=== PATIENT | male | born 1970 | race Two or more races ===

== ENCOUNTER 2019-11-23 12:30 | Inpatient (IN) | payer MEDICAID ==
[~2019-11-23] VITALS: Ht 167.6 cm; Wt 85.5 kg
--- NOTE | 2019-11-23 08:15 | NUR ---
MS admit from ER CHRISTOPHER REYNOLDS admitted to tele/MS after SBAR received. Patient oriented to ZOE IVEY, ROMAN primary RN, unit, room, bed, and unit policies regarding patient care and visiting hours. Patient weighed by bedscale and encouraged to call if they need something. All questions and concerns addressed, patient verbalized understanding. Note: Patient received no complaints of pain or distress. He ambulates to BR. Resp even and unlabored. Alert and oriented x 3. Will continue to monitor.
[2019-11-23 13:22] LABS: Urine Bacteria FEW /hpf (None Seen); Urine Blood 3+ /uL (Negative); Urine Mucus FEW (None Seen); Urine Specific Gravity 1.026 (1.001-1.035); Urine WBC 8 /hpf (0 - 3)
[2019-11-23 16:17] LABS: Basophils # (auto) 0 10 ^3/uL (0-0.2); Basophils % (auto) 0.2 % (0.0-2.0); Eosinophils # (auto) 0 10 ^3/uL (0-0.8); Hematocrit 48.4 % (41.0-53.0); Hemoglobin 16.3 g/dL (13.5-17.5); Lymphocytes # (auto) 0.5 10 ^3/uL (0.4-5.4); Lymphocytes % (auto) 4.9 % (10.0-50.0); Mean Corpuscular Hemoglobin 30.6 pg (28.0-32.0); Mean Corpuscular Hgb Conc. 33.6 g/dL (32.0-36.0); Mean Corpuscular Volume 91.1 fL (80.0-100.0); Monocytes # (auto) 0.4 10 ^3/uL (0-1.3); Monocytes % (auto) 4.4 % (0.0-12.0); Neutrophils % (auto) 90.5 % (37.0-80.0); Platelet Count (auto) 248 10^3/uL (140-450); Red Blood Cells 5.32 10^6/uL (4.5-5.90)
[2019-11-23 16:38] LABS: Albumin 4.4 g/dL (3.4-5.0); Anion Gap 6 (5-15); Blood Urea Nitrogen 12 mg/dL (7-18); Calcium 9.5 mg/dL (8.5-10.1); Carbon Dioxide 27 mmol/L (21-32); Chloride 103 mmol/L (98-107); Glucose 149 mg/dL (74-106); Potassium 3.9 mmol/L (3.5-5.1); Sodium 136 mmol/L (136-145)
[2019-11-23 16:38] LABS: Alcohol, Urine < 3.0 mg/dL (0-10); Amphetamine Screen, Urine NEGATIVE (NEGATIVE); Barbiturate Scree,Urine NEGATIVE (NEGATIVE); Benzodiazephine Screen, Urine NEGATIVE (NEGATIVE); Cannabinoid Screen, Urine NEGATIVE (NEGATIVE); Cocaine Screen, Urine NEGATIVE (NEGATIVE); Opiate Scree,Urine NEGATIVE (NEGATIVE); Phencyclidine Screen, Urine NEGATIVE (NEGATIVE)
[2019-11-23 16:42] LABS: Amylase 62 U/L (25-115); Lipase 72 U/L (73-393)
[2019-11-23 16:44] LABS: Alanine Aminotransferase 43 U/L (16-61); Alkaline Phosphatase 84 U/L (45-117); Aspartate Aminotransferase 19 U/L (15-37); BUN/Creatinine Ratio 11.1; Bilirubin, Total 0.5 mg/dL (0.2-1.0); GFR African American 94 mL/min; GFR Non-African American 78 mL/min; Total Protein 8.3 g/dL (6.4-8.2)
[2019-11-23] MEDS ORDERED: ONDANSETRON HCL 4 MG/2 ML VIAL IV ONE (17:00)
[2019-11-23] MEDS ORDERED: MORPHINE SULFATE 4 MG/ML SYR/VIAL IV ONE (17:00)
[2019-11-23] MEDS ORDERED: TAMSULOSIN HYDROCHLORIDE 0.4 MG CAP PO ONE (17:00)
[2019-11-23] MEDS ORDERED: ACETAMINOPHEN 500 MG TAB PO PRN (19:30)
[2019-11-23] MEDS ORDERED: MORPHINE SULF INJ 2 MG/ML SYRINGE 1ML IV PRN (19:30)
[2019-11-23] MEDS ORDERED: TEMAZEPAM 15 MG CAP PO PRN (19:30)
[2019-11-23] MEDS ORDERED: DEXTROSE (50%) 50ML SYRG IV PRN (19:30)
[2019-11-23] MEDS ORDERED: levoFLOXacin 500MG 100 ML IV ONE (19:30)
[2019-11-23] MEDS ORDERED: PROMETHAZINE HCL 25 MG/ML 1ML IV PRN (19:30)
[2019-11-23] MEDS: SODIUM CHLORIDE 0.9% 1,000 ML IV SCH (20:14)
[2019-11-23] MEDS: FAMOTIDINE (10MG/ML) 2ML VL IV SCH (20:14)
[2019-11-23 20:20] VITALS: BP 129/93
[2019-11-23 22:00] VITALS: BP 129/93
[2019-11-23] MEDS: ACCU-CHEK COMFORT CURVE STRIP VI SCH (22:00)
[2019-11-24 05:00] VITALS: BP 120/76
[2019-11-24] MEDS: SODIUM CHLORIDE 0.9% 1,000 ML IV SCH ×3 (05:24→19:34)
[2019-11-24] MEDS: ACCU-CHEK COMFORT CURVE STRIP VI SCH (06:42)
--- NOTE | 2019-11-24 06:49 | NUR ---
Patient denies pain and discomfort. No distress noted. AM accucheck 104mg/dl.
--- NOTE | 2019-11-24 08:15 | NUR ---
Opening Shift Note Assumed care of patient, awake, alert, and oriented. No S/S of distress/SOB. C/o pain 6/10 achy abdomen, will medicate per MD orders. Bed in lowest/locked position, bed rails up x2, call light within reach. Instructed on POC and to call for assist PRN. Will continue to monitor for changes Q1hr and PRN.
[2019-11-24] MEDS: FAMOTIDINE (10MG/ML) 2ML VL IV SCH ×2 (08:18→19:29)
[2019-11-24] MEDS: levoFLOXacin 500MG 100 ML IV SCH (08:19)
[2019-11-24] MEDS: traMADol HCL 50 MG TAB PO PRN ×2 (08:19→19:30)
[2019-11-24 09:00] VITALS: BP 137/78
[2019-11-24 12:50] VITALS: BP 135/90
--- NOTE | 2019-11-24 13:10 | NUR ---
MD ROUNDS DR CASTANEDA AT BEDSIDE DISCUSSING POC WITH PATIENT. NEW ORDERS RECEIVED/WILL CARRY OUT . WILL CONTINUE TO MONITOR
--- NOTE | 2019-11-24 13:59 | NUR ---
LAB UA SENT TO LAB PER MD ORDERS
[2019-11-24 17:00] VITALS: BP 149/87
[2019-11-24 22:00] VITALS: BP 128/72
[2019-11-25] MEDS: SODIUM CHLORIDE 0.9% 1,000 ML IV SCH ×3 (01:55→16:10)
[2019-11-25 05:00] VITALS: BP 110/81
[2019-11-25] MEDS: FAMOTIDINE (10MG/ML) 2ML VL IV SCH (05:47)
[2019-11-25 05:58] LABS: Basophils # (auto) 0 10 ^3/uL (0-0.2); Basophils % (auto) 0.3 % (0.0-2.0); Eosinophils # (auto) 0 10 ^3/uL (0-0.8); Eosinophils % (auto) 0.6 % (0.0-7.0); Hematocrit 43.7 % (41.0-53.0); Hemoglobin 14.6 g/dL (13.5-17.5); Lymphocytes # (auto) 1.8 10 ^3/uL (0.4-5.4); Lymphocytes % (auto) 27.7 % (10.0-50.0); Mean Corpuscular Hemoglobin 30.2 pg (28.0-32.0); Mean Corpuscular Hgb Conc. 33.3 g/dL (32.0-36.0); Mean Corpuscular Volume 90.5 fL (80.0-100.0); Monocytes # (auto) 0.8 10 ^3/uL (0-1.3); Monocytes % (auto) 12.6 % (0.0-12.0); Neutrophils # (auto) 3.9 10 ^3/uL (1.6-8.6); Neutrophils % (auto) 58.8 % (37.0-80.0); Nucleated Red Blood Cells % 0.1 %; Platelet Count (auto) 189 10^3/uL (140-450); Red Blood Cells 4.83 10^6/uL (4.5-5.90); Red Cell Distribution Width 12.7 % (11.8-14.3); White Blood Cell 6.6 10^3/uL (4.4-10.8)
[2019-11-25 06:17] LABS: INR 0.98 (0.9-1.15)
[2019-11-25 06:18] LABS: BUN/Creatinine Ratio 9.3; Calcium 8.4 mg/dL (8.5-10.1); Potassium 3.8 mmol/L (3.5-5.1)
[2019-11-25 08:37] VITALS: BP 118/64
[2019-11-25] MEDS: levoFLOXacin 500MG 100 ML IV SCH (09:44)
[2019-11-25 12:35] VITALS: BP 127/86
[2019-11-25 14:42] VITALS: BP 127/86
[2019-11-25 14:52] VITALS: BP 127/86
--- NOTE | 2019-11-25 16:38 | NUR ---
Patient IV removed catheter intact, patient discharge instructions given, and patient made aware of DC medications, patient verbalized understanding.
--- NOTE | 2019-11-25 16:50 | NUR ---
Patient discharged, ambulated downstairs.
== END 2019-11-25 16:02 | disposition home or self-care (01) | DRG 463 ==
LOC: ER 12:30 → OVERFLOW 12:31 → WEST WING 20:46
PROVIDERS: ADMIT Internal Medicine; ATTEND Internal Medicine
DX: N13.6 Pyonephrosis (principal); R73.9 Hyperglycemia, unspecified; E66.3 Overweight; Z68.30 Body mass index [BMI] 30.0-30.9, adult; E66.9 Obesity, unspecified; K42.9 Umbilical hernia without obstruction or gangrene
CPT/HCPCS: 36415; 74176; 80048; 80053; 80307; 81001; 82150; 82962; 83036; 83690; 84443; 84484; 85025; 85610; 87086; G0378; J1956; J2405; J3490